=== PATIENT | male | born 1970 ===

== ENCOUNTER 2021-12-08 21:24 | Emergency (ER) | payer SELFPAY ==
[2021-12-08] VITALS (14 sets, daily range): BP systolic 93–130; BP diastolic 64–94; PULSE 75–82; RESP 14–29; TEMP 36.9; O2SAT 93–99
--- NOTE | ~2021-12-08 | CT_ITS ---
EXAMINATION: CT brain wo con DATE: 12/08/2021 21:36 INDICATION: Left hemiparesis and slurred speech TECHNIQUE: Computed tomography (CT) of the head was performed without intravenous contrast. Sagittal and coronal reconstructions were performed. The mA was adjusted according to patient size. Iterative reconstruction technique was employed. The dose-length product was 983.67 mGy-cm. COMPARISON: None FINDINGS: No acute intracranial hemorrhage, acute infarction or abnormal extra axial fluid collection. Ventricl es are normal and symmetric. No mass/mass effect. Mucosal thickening throughout the paranasal sinuses . The orbits and mastoid air cells are normal. IMPRESSION: 1. No acute intracranial process. Reviewed, dictated and finalized at location A.
--- NOTE | ~2021-12-08 | CT_ITS ---
EXAMINATION: CTA BRAIN/CAROTID DATE: 12/08/2021 22:13 INDICATION: Left hemiparesis TECHNIQUE: Computed tomographic angiography (CTA) of the head and neck was performed with 100 mL Omni paque-350 intravenous contrast. Multiplanar reconstructions and maximum intensity projection 3D-recon structions of the carotid arteries and of the intracranial arteries were created by the technologist on a separate workstation. Automated exposure control and iterative reconstruction technique were emp loyed.The dose-length product was 1156.19 mGy-cm. COMPARISON: None. FINDINGS: Carotid arteries: Visualized portion of the aortic arch is normal in caliber with no dissection. Atherosclerotic plaque without hemodynamically significant stenosis at the origins of the innominate and left subclavian ar teries. There is a small amount of atherosclerotic plaque with 0% stenosis of the right carotid bulb relative to normal distal artery lumen diameter (NASCET criteria). There is 20% stenosis of the left carotid bulb relative to normal distal artery lumen diameter. Right vertebral artery is dominant. The re is some atherosclerotic plaque at the origin of the left vertebral artery however unable to assess for degree of stenosis due to the small caliber of the vessel and small amount of motion artifact. M oderate cervical spondylosis. Cervical soft tissues are unremarkable. Severe paraseptal predominant e mphysema in the visualized upper lungs. There is biapical pleural-parenchymal scarring. 2.6 x 2.0 cm spiculated nodule at the right apex which may be related to the pleural parenchymal scarring however a primary prostatic carcinoma could not be excluded. Intracranial arteries There is no hemodynamically significant stenosis in the vertebral, basilar and internal carotid arter ies. There are no aneurysms or dissection identified. Both A1 and left P1 segments are patent. The r ight posterior cerebral artery is supplied via a patent right posterior communicating artery. Cerebra l arterial arborization appears symmetric. No abnormally enhancing brain lesions identified. IMPRESSION: 1. Small amount of atherosclerotic plaque with 0% stenosis of the right carotid bulb relative to norm al distal artery lumen diameter (NASCET criteria). 2. 20% stenosis of the left carotid bulb relative to normal distal artery lumen diameter. 3. Unremarkable cerebral CT angiogram with no hemodynamically significant stenosis, aneurysm or disse ction. 4. Severe paraseptal emphysema with 2.6 x 2.0 cm spiculated nodule at the right apex which could be r elated pleural parenchymal scarring or primary bronchogenic carcinoma. Recommend correlation with any prior outside imaging if available. Otherwise would recommend further evaluation with PET/CT. Reviewed, dictated and finalized at location A. IMPRESSION: 1. Small amount of atherosclerotic plaque with 0% stenosis of the right carotid bulb relative to normal distal artery lumen diameter (NASCET criteria). 2. 20% stenosis of the left carotid bulb relative to normal distal artery lumen diameter. 3. Unremarkable cerebral CT angiogram with no hemodynamically significant steno sis, aneurysm or dissection. 4. Severe paraseptal emphysema with 2.6 x 2.0 cm spiculated nodule at the right apex which could be related pleural parenchymal scarring or primary bronchogen ic carcinoma. Recommend correlation with any prior outside imaging if available . Otherwise would recommend further evaluation with PET/CT.
--- NOTE | 2021-12-08 21:27 | ECG_ITS ---
Measurements Intervals [place] Rate: 78 P: 75 VA: 131 QRS: 66 QRSD: 102 T: 81 QT: 382 QTc: 436 Interpretive Statements SINUS RHYTHM POSSIBLE INFERIOR MYOCARDIAL INFARCTION , PROBABLY OLD [30 ms Q WAVE IN II/aVF] ABNORMAL ECG NO PREVIOUS ECG AVAILABLE FOR COMPARISON Electronically Signed On 12-09-2021 10:03:16 CDT by Carl Bueno M.D.
--- NOTE | 2021-12-08 21:36 | PC.NURSE ---
2135-accucheck done in CT was 108. reported to dr. littlejohn and vince fleming
--- NOTE | 2021-12-08 21:44 | ED.GENADULT ---
HPI - General Adult General Chief complaint: Weakness <Laine Aparicio PA-C - Last Filed: 12/09/21 01:36> Stated complaint: Code Stroke <MARELY Zarate Last Filed: 12/09/21 01:36> Time Seen by Provider: 12/08/21 21:26 <Laine Aparicio PA-C - Last Filed: 12/09/21 01:36> Source: patient and family <Laine Aparicio PA-C - Last Filed: 12/09/21 01:36> Mode of arrival: ambulatory <Laine Aparicio PA-C - Last Filed: 12/09/21 01:36> Limitations: clinical condition <Laine Aparicio PA-C - Last Filed: 12/09/21 01:36> History of Present Illness HPI narrative: Patient is a 51-year-old male who presents the ED with his girlfriend with report of left-sided weakness, difficulty speaking. Per girlfriend, patient's symptoms began around 7:30 PM tonight. He does have weakness of left arm and left leg and is having difficulty speaking with slurred speech. He attempts to say that the left side of his body feels heavy and different. <Laine Aparicio PA-C - Last Filed: 12/09/21 01:36> Related Data Allergies/adverse reactions: Allergies Allergy/AdvReac Type Severity Reaction Status Date / Time No Known Allergies Allergy Verified 12/08/21 21:45 <Laine Aparicio PA-C - Last Filed: 12/09/21 01:36> Review of Systems Review of Systems: ROS unobtainable: Yes unobtainable due to medical condition <MARELY Zarate Last Filed: 12/09/21 01:36> PENDING SALE TO [facility] Past Medical History Medical History: Medical History (Updated 12/09/21 @ 01:24 by Laine Aparicio PA-C) History of coronary artery disease HLD (hyperlipidemia) HTN (hypertension) <MARELY Zarate Last Filed: 12/09/21 01:36> Surgical History Surgical History: Surgical History (Updated 12/09/21 @ 01:25 by Laine Aparicio PA-C) History of back surgery <Laine Aparicio PA-C - Last Filed: 12/09/21 01:36> Social History Social History: Social History (Updated 12/09/21 @ 01:25 by Laine Aparicio PA-C) Smoking status: Current every day smoker Alcohol intake: current <Laine Aparicio PA-C - Last Filed: 12/09/21 01:36> Exam Narrative: GENERAL: Thin - borderline cachectic, appears older than stated age, in mild acute distress. HEAD: Normocephalic, atraumatic. No signs of trauma. EYES: PERRL/EOMI, conjunctivae clear bilaterally. No gaze deviation. THROAT: Edentulous. Pharynx clear, no exudate. MMs dry. NECK: Supple. No adenopathy, no masses. RESPIRATORY: Airway patent, respirations nonlabored. Mild tachypnea, no distress. Audible wheezing throughout lung li. CARDIOVASCULAR: Regular rate and rhythm without murmurs, rubs, or gallops. Peripheral pulses 2+ and equal bilaterally. ABDOMINAL: Soft, nontender, nondistended, no hepatosplenomegaly. Normoactive BS. MUSCULOSKELETAL: Limited ROM of LUE/LLE. SKIN: Warm, dry, normal color. No rashes. NEURO: A&O X2. Confused at times. Speech slurred, dysphasic, difficulty speaking thoughts. Patient following most commands, but unable to adequately assess cranial nerves. Unable to lift left arm off bed, minimally able to lift fingers. Minimal lift/movement/effort of left leg. No pronator drift of RUE. Able to perform finger to nose testing with RUE but with some incoordination. PSYCHIATRIC: Anxious. <Laine Aparicio PA-C - Last Filed: 12/09/21 01:36> Course COMMUNITY HEALTH ADVISOR/PA Physician Supervision For this patient encounter, I reviewed the COMMUNITY HEALTH ADVISOR or PA documentation, treatment plan, and medical decision making; and I had [id number] time with this patient. Patient presented with acute left-sided deficit. Patient and family were updated on the risks and benefits of tPA. They were comfortable with the plan to proceed with treatment. Case was discussed with slow neurology and patient was accepted as an ED to ED transfer. Impressions Head CT 12/08/21 21:37 IMPRESSION: 1. No acute i
[2021-12-08 21:48] LABS: Basophils Absolute Auto 0.1 K/mm3 (0.0-0.1); Basophils Percent Auto 1.2 % (0.2-1.2); Eosinophils Absolute Auto 0.8 K/mm3 (0-0.3); Hematocrit 42.6 % (42.0-52.0); Hemoglobin 14.8 g/dL (14.0-18.0); Immature Granulocyte Absolute 0.03 K/mm3 (0.00-0.031); Immature Granulocyte Percent A 0.3 % (0-0.5); Mean Corpuscular HGB Conc 34.7 g/dl (32-36); Mean Corpuscular Hemoglobin 32.4 pg (26-34); Mean Corpuscular Volume 93.2 fl (80-100); Mean Platelet Volume 11.7 fl (7.4-10.4); Monocytes Absolute Auto 1.1 K/mm3 (0.1-0.6); Neutrophils Absolute Auto 6.1 K/mm3 (1.3-6.7); Neutrophils Percent Auto 54.5 % (45.5-73.1); Platelet Count Result 156 k/mm3 (150-375); Red Blood Count 4.57 M/mm3 (4.6-6.20); Red Cell Distribution Width 13.9 % (11.5-14.5); White Blood Count 11.1 K/mm3 (4.5-10.0)
[2021-12-08 21:54] LABS: Ethanol 43 mg/dL (<10)
[2021-12-08 21:55] LABS: INR 1.1; Prothrombin Time 13.5 Seconds (11.1-14.7)
[2021-12-08 21:56] LABS: Alanine Aminotransferase 240 U/L (6-50); Albumin Level 4.3 g/dL (3.5-5.1); Alkaline Phosphatase 83 U/L (38-126); Anion Gap 13 mmol/L (8-16); Aspartate Amino Transferase 173 U/L (17-59); Bilirubin,Total 0.5 mg/dL (0.2-1.3); Blood Urea Nitrogen 24 mg/dL (9-20); Calcium 9.5 mg/dL (8.4-10.2); Carbon Dioxide 25 mmol/L (22-30); Chloride 107 mmol/L (98-107); Estimated Glomerular Filt Rate > 60; Glucose 103 mg/dL (65-110); Partial Thromboplastin Time 30.6 SECONDS (22.3-36.8); Potassium 3.8 mmol/L (3.4-5.0); Sodium 145 mmol/L (137-145)
[2021-12-08 22:04] LABS: Alveolar/Arterial O2 Gradient 20.5 mmHg; Base Excess ABG -0.7 mEq/l (+/-2.0); Carboxyhemoglobin 3.3 % THb (0-2.0); Fractional Inspired Oxygen 21 %; HCO3 ABG 25.2 mEq/l (22.0-26.0); Methemoglobin ABG 0.2 %THb (0-1.5); Oxygen Content ABG 18.7 %vol (16.0-22.0); Oxygen Saturation ABG 94.2 % (95.0-100.0); Oxyhemoglobin 90.3 % THb (90.0-100.0); PCO2 ABG 46.2 mmHg (35.0-45.0); PO2 ABG 73.9 mmHg (80.0-100.0); PO2 FiO2 Ratio Arterial Blood 3.52 %; Reduced Hemoglobin 6.2 %THb (0-5.0); Total Hemoglobin 14.7 g/dL (12.0-18.0); pH ABG 7.355 (7.350-7.450)
[2021-12-08 22:05] LABS: Device ROOM AIR; Modified Allen's Test Pass; Site Drawn RIGHT RADIAL
--- NOTE | 2021-12-08 22:06 | PC.NURSE ---
Patient off unit to CT.
[2021-12-08] MEDS: ALBUTEROL SULFATE NEB 2.5 MG/3 ML INH 5 MG INHALATION (22:29)
--- NOTE | 2021-12-08 22:52 | PC.NURSE ---
Security at bedside with patient and patient's present to count wolf in patient's wallet.
[2021-12-09] VITALS (19 sets, daily range): BP systolic 94–130; BP diastolic 63–75; PULSE 70–82; RESP 17–27; O2SAT 96–100
[2021-12-09 00:43] LABS: Amphetamine Screen Urine Negative (Negative); Barbiturate Screen Urine Negative (Negative); Benzodiazepines Screen Urine Positive (Negative); Cannabinoid Screen Urine Negative (Negative); Cocaine Screen Urine Negative (Negative); Methadone Screen Urine Negative (Negative); Opiate Screen Urine Negative (Negative); Phencyclidine Screen Urine Negative (Negative)
--- NOTE | 2021-12-09 00:47 | PC.NURSE ---
Patient report given to NILAY Jang. All questions answered and care of patient transferred.
[2021-12-11 11:23] LABS: Glucose Point of Care 108 mg/dl (65-105)
== END 2021-12-09 02:30 | disposition short-term general hospital (02) ==
PROVIDERS: Emergency Provider Emergency Medicine
DX: I63.9 Cerebral infarction, unspecified (principal); R29.711 NIHSS score 11; I25.10 Atherosclerotic heart disease of native coronary artery without angina pectoris; E78.5 Hyperlipidemia, unspecified; I10 Essential (primary) hypertension; F17.200 Nicotine dependence, unspecified, uncomplicated; R94.31 Abnormal electrocardiogram [ECG] [EKG]; J43.9 Emphysema, unspecified; R91.1 Solitary pulmonary nodule
CPT/HCPCS: 36415; 36600; 37195; 70450; 70496; 70498; 80053; 80307; 82375; 82805; 82948; 83050; 85025; 85610; 85730; 93005; 94640; 99285; J2997; J7030; Q9967